=== PATIENT | female | born 1965 | race Two or more races ===

== ENCOUNTER 2022-04-08 18:08 | Emergency (ER) | payer SELFPAY ==
[~2022-04-08] VITALS: Ht 162.6 cm; Wt 114.4 kg
[2022-04-08 18:47] VITALS: BP 148/89
[2022-04-08] MEDS ORDERED: ALBUTEROL SULF 2.5 MG/0.5ML(0.5%) NEB SOLN NEB ONE (19:30)
[2022-04-08] MEDS ORDERED: methylPREDNISolone SOD SUCC 125 MG/2 ML VL IV ONE (19:30)
[2022-04-08] MEDS ORDERED: IPRATROPIUM BROM 0.5 MG/2.5ML INH SOL NEB ONE (19:30)
[2022-04-08 20:02] LABS: Basophils # (auto) 0.1 10 ^3/uL (0-0.2); Basophils % (auto) 0.8 % (0.0-2.0); Eosinophils # (auto) 0.1 10 ^3/uL (0-0.8); Eosinophils % (auto) 1.3 % (0.0-7.0); Hematocrit 46.4 % (36.0-46.0); Hemoglobin 15.5 g/dL (12.2-16.2); Lymphocytes # (auto) 2.2 10 ^3/uL (0.4-5.4); Lymphocytes % (auto) 25.8 % (10.0-50.0); Mean Corpuscular Hemoglobin 31.3 pg (28.0-32.0); Mean Corpuscular Hgb Conc. 33.4 g/dL (32.0-36.0); Mean Corpuscular Volume 93.9 fL (80.0-100.0); Monocytes # (auto) 0.5 10 ^3/uL (0-1.3); Monocytes % (auto) 5.3 % (0.0-12.0); Neutrophils # (auto) 5.8 10 ^3/uL (1.6-8.6); Neutrophils % (auto) 66.8 % (37.0-80.0); Nucleated Red Blood Cells % 0.1 %; Red Blood Cells 4.94 10^6/uL (4.0-5.20); Red Cell Distribution Width 13.2 % (11.8-14.3); White Blood Cell 8.6 10^3/uL (4.4-10.8)
[2022-04-08 20:22] LABS: Albumin 3.9 g/dL (3.4-5.0); Calcium 9.6 mg/dL (8.5-10.1); Magnesium 2.7 mg/dL (1.6-2.6); Potassium 4.4 mmol/L (3.5-5.1)
[2022-04-08 20:25] LABS: BUN/Creatinine Ratio 15.8; Bilirubin, Total 0.5 mg/dL (0.2-1.0)
[2022-04-08] MEDS ORDERED: PRED20TA2 PO (22:46)
[2022-04-08] MEDS ORDERED: ALBU108A5 IN (22:46)
== END 2022-04-09 03:10 | disposition home or self-care (01) ==
LOC: ER 18:08
DX: R06.00 Dyspnea, unspecified (principal); J45.909 Unspecified asthma, uncomplicated
CPT/HCPCS: 36415; 71046; 80053; 83735; 84484; 85025; 93005; 94640; 99285; J7644

== ENCOUNTER 2023-12-14 12:42 | Emergency (ER) | payer MEDICAID ==
[~2023-12-14] VITALS: Ht 162.6 cm; Wt 111.5 kg
[~2023-12-14 12:42] MED LIST: ALBU108A5 IN; PRED20TA2 PO
[2023-12-14] MEDS: methylPREDNISolone SOD SUCC 125 MG/2 ML VL IV ONE (13:11)
[2023-12-14] MEDS: ALBUTEROL SULF 2.5 MG/0.5ML(0.5%) NEB SOLN NEB ONE (13:16)
[2023-12-14] MEDS: IPRATROPIUM BROM 0.5 MG/2.5ML INH SOL NEB ONE (13:16)
[2023-12-14 13:20] VITALS: PULSE 78; RESP 19; TEMP 98.2; O2SAT 96
[2023-12-14 13:35] LABS: Basophils # (auto) 0.1 10 ^3/uL (0-0.2); Basophils % (auto) 0.9 % (0.0-2.0); Eosinophils # (auto) 0.1 10 ^3/uL (0-0.8); Hematocrit 45.2 % (36.0-46.0); Hemoglobin 15.2 g/dL (12.2-16.2); Lymphocytes % (auto) 28.7 % (10.0-50.0); Mean Corpuscular Hemoglobin 31.7 pg (28.0-32.0); Mean Corpuscular Hgb Conc. 33.7 g/dL (32.0-36.0); Mean Corpuscular Volume 94.2 fL (80.0-100.0); Monocytes # (auto) 0.6 10 ^3/uL (0-1.3); Monocytes % (auto) 5.3 % (0.0-12.0); Neutrophils # (auto) 6.7 10 ^3/uL (1.6-8.6); Neutrophils % (auto) 64.1 % (37.0-80.0); White Blood Cell 10.4 10^3/uL (4.4-10.8)
[2023-12-14 13:58] LABS: Chloride 104 mmol/L (98-107); Potassium 3.7 mmol/L (3.5-5.1); Sodium 139 mmol/L (136-145)
[2023-12-14 13:59] LABS: Anion Gap 6 (5-15); Calcium 9.9 mg/dL (8.7-10.4); Carbon Dioxide 29 mmol/L (20-30)
[2023-12-14 14:04] LABS: BUN/Creatinine Ratio 11.8 (10.0-20.0); Blood Urea Nitrogen 9 mg/dL (9-23); Glucose 151 mg/dL (74-106)
[2023-12-14] MEDS ORDERED: PRED20TA2 PO (15:32)
[2023-12-14 16:21] VITALS: BP 135/75; PULSE 83; RESP 16; O2SAT 93
== END 2023-12-14 16:57 | disposition home or self-care (01) ==
LOC: ER 12:42
DX: T78.49XA Other allergy, initial encounter (principal); J45.909 Unspecified asthma, uncomplicated; X58.XXXA Exposure to other specified factors, initial encounter
CPT/HCPCS: 36415; 71045; 80048; 85025; 85379; 93005; 94640; 96374; 99285; J2930; J7644

== ENCOUNTER 2025-05-16 14:27 | Emergency (ER) | payer OTHER ==
[~2025-05-16] VITALS: Ht 162.6 cm; Wt 109.0 kg
[2025-05-16 14:48] VITALS: BP 158/89; PULSE 96; RESP 19; TEMP 98.4; O2SAT 99
[2025-05-16] MEDS: HYDROcodone-ACET 10/325MG TAB PO ONE (16:15)
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
[2025-05-16] MEDS ORDERED: METH-1182 PO (17:46)
[2025-05-16] MEDS ORDERED: IBUP-1456 PO (17:46)
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
== END 2025-05-16 18:01 | disposition home or self-care (01) ==
LOC: EDUNIT# 14:27 → ER 14:27 → EDBD 14:27 → ER 18:01
DX: S83.91XA Sprain of unspecified site of right knee, initial encounter (principal); S93.401A Sprain of unspecified ligament of right ankle, initial encounter; S16.1XXA Strain of muscle, fascia and tendon at neck level, initial encounter; R51.9 Headache, unspecified; F41.9 Anxiety disorder, unspecified; Z79.899 Other long term (current) drug therapy; Z79.52 Long term (current) use of systemic steroids; Z79.1 Long term (current) use of non-steroidal anti-inflammatories (NSAID); V89.2XXA Person injured in unspecified motor-vehicle accident, traffic, initial encounter; Y93.89 Activity, other specified; Y92.488 Other paved roadways as the place of occurrence of the external cause; Y99.8 Other external cause status
CPT/HCPCS: 70450; 72040; 73562; 73610